=== PATIENT | female | born 1995 | race Caucasian/White ===

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

== ENCOUNTER 2017-05-28 12:48 | Emergency (ER) | payer OTHER ==
[2017-05-28 12:59] VITALS: BP 124/79
--- NOTE | 2017-05-28 13:27 | XRAY Preliminary Report ---
Exam: XR ANKLE 3 VIEW LT IMPRESSION: Normal ankle radiography. [facility] SITE ID: [id number]
--- NOTE | 2017-05-28 13:30 | ED Physician Documentation ---
PD HPI LOWER EXT INJURY - Stated complaint Stated Complaint: L ANKLE INJURY - Chief complaint Chief Complaint: Ext Problem - History obtained from History obtained from: Patient - History of Present Illness PD HPI LOW EXT INJURY LOCATION: Left, Ankle Type of injury: Other (Eversion injury at home at 6:00 last night after she tripped over her dog. Only able to walk with severe pain the pain is mild at rest.) Review of Systems Constitutional: reports: Reviewed and negative Cardiac: reports: Reviewed and negative Respiratory: reports: Reviewed and negative PD PAST MEDICAL HISTORY - Past Medical History Psych: ADD/ADHD - Past Surgical History Past Surgical History: No Ortho: Other - Present Medications Home Medications: Ambulatory Orders Medication Instructions Recorded Confirmed Dextroamphetamine/Amphetamine 40 mg PO DAILY 06/01/16 05/28/17 [Adderall 20 mg Tablet] Sertraline [Zoloft] 100 mg PO DAILY 06/01/16 05/28/17 Ibuprofen [Motrin] 800 mg PO Q8H PRN #30 tablet 05/28/17 - Allergies Allergies/Adverse Reactions: Allergies Allergy/AdvReac Type Severity Reaction Status Date / Time Iodinated Contrast- Oral and Allergy Anaphylaxis Verified 09/15/16 21:46 IV Dye [Iodinated Contrast Media - Oral and] iodine Allergy Anaphylaxis Verified 06/01/16 18:21 - Social History Does the pt smoke?: No Smoking Status: Never smoker Does the pt drink ETOH?: No Does the pt have substance abuse?: No - Immunizations Immunizations are current?: Yes - POLST Patient has POLST: No PD ED PE NORMAL - Vitals Vital signs reviewed: Yes - General General: Alert and oriented X 3, No acute distress - Extremities Extremities: Other (Left ankle is exquisitely tender over the anterior joint line/talus and anterior part of the medial malleolus without lateral malleolar tenderness. Achilles function is normal. Foot is nontender with normal neurovascular status.) Results - Vitals Vitals: Vital Signs - 24 hr 05/28/17 12:56 Temperature 36.6 C Heart Rate 90 Respiratory 18 Rate Blood Pressure 124/79 O2 Saturation 100 Oxygen O2 Source Room air Departure - Departure Disposition: Home, Self Care Clinical Impression: Left ankle sprain Qualifiers: Encounter type: initial encounter Involved ligament of ankle: tibiofibular ligament Qualified Code(s): S93.432A - Sprain of tibiofibular ligament of left ankle, initial encounter Condition: Good Record reviewed to determine appropriate education?: Yes Instructions: ED Sprain Ankle W X Ray Prescriptions: Ibuprofen [Motrin] 800 mg PO Q8H PRN #30 tablet PRN Reason: PAIN &/OR FEVER Comments: Recheck with your doctor in 1 week if not significantly improved. Return if worse.
--- NOTE | 2017-05-28 13:30 | XRAY Report ---
EXAM: LEFT ANKLE RADIOGRAPHY EXAM DATE: 05/28/2017 01:19 PM. CLINICAL HISTORY: Trip and fall. COMPARISON: None. TECHNIQUE: 3 views. FINDINGS: Bones: Normal. No fractures or bone lesions. Joints: Normal. No effusion. No subluxations. The ankle mortise is normally aligned. Soft Tissues: Normal. No soft tissue swelling. IMPRESSION: Normal ankle radiography. [facility] Referring Provider Line: [phone] SITE ID: [id number]
== END 2017-05-28 13:48 | disposition home or self-care (01) ==
LOC: ED 12:48
DX: S93.402A Sprain of unspecified ligament of left ankle, initial encounter (principal); W01.0XXA Fall on same level from slipping, tripping and stumbling without subsequent striking against object, initial encounter; Y92.019 Unspecified place in single-family (private) house as the place of occurrence of the external cause
CPT/HCPCS: 99283

== ENCOUNTER 2018-04-01 16:02 | Emergency (ER) | payer OTHER ==
[2018-04-01 16:08] VITALS: BP 129/74
[2018-04-01] MEDS ORDERED: PHENAZOPYRIDINE 100 MG TABLET PO STA (16:20)
--- NOTE | 2018-04-01 16:25 | ED Physician Documentation ---
History of Present Illness - Stated complaint Stated Complaint: FEMALE - Chief complaint Chief Complaint: General - Additonal information Additional information: hx from pt 22 y/o female implanted control so irreg periods LMP now denies preg no unusual vag dc and denies concern for STD possible fevers chills some nausea some L flank pain no severe abd pain Review of Systems Constitutional: reports: Chills Throat: denies: Sore throat Cardiac: denies: Chest pain / pressure Respiratory: denies: Dyspnea GI: reports: Abdominal Pain (suprapubic) : reports: Dysuria, Hesitancy, LMP (now). denies: Now EGA Musculoskeletal: reports: Back pain Endocrine: denies: Easy bruising / bleeding Immunocompromised: denies: Immunocompromised PD PAST MEDICAL HISTORY - Past Medical History Psych: ADD/ADHD - Past Surgical History Past Surgical History: No Ortho: Other - Present Medications Home Medications: Ambulatory Orders Medication Instructions Recorded Confirmed Phenazopyridine [Pyridium] 100 mg PO Q8H PRN #9 tablet 04/01/18 - Allergies Allergies/Adverse Reactions: Allergies Allergy/AdvReac Type Severity Reaction Status Date / Time Iodinated Contrast- Oral and Allergy Anaphylaxis Verified 04/01/18 16:07 IV Dye [Iodinated Contrast Media - Oral and] iodine Allergy Anaphylaxis Verified 04/01/18 16:07 - Social History Does the pt smoke?: No Smoking Status: Never smoker Does the pt drink ETOH?: No Does the pt have substance abuse?: No - Immunizations Immunizations are current?: Yes - POLST Patient has POLST: No Results - Vitals Vitals: Vital Signs - 24 hr 04/01/18 16:05 Temperature 36.3 C L Heart Rate 70 Respiratory 14 Rate Blood Pressure 129/74 O2 Saturation 99 Oxygen O2 Source Room air - Labs Labs: Laboratory Tests 04/01/18 16:15 Urine Color YELLOW Urine Clarity HAZY Urine pH 5.0 Ur Specific [place] >=1.030 H Urine Protein NEGATIVE Urine Glucose (UA) NEGATIVE Urine Ketones NEGATIVE Urine Occult Blood MODERATE H Urine Nitrite NEGATIVE Urine Bilirubin NEGATIVE Urine Urobilinogen 0.2 (NORMAL) Ur Leukocyte Esterase NEGATIVE Urine RBC 0-5 Urine WBC 0-3 Ur Squamous Epith Cells FEW Squamous Urine Bacteria None Seen Ur Microscopic Review INDICATED Urine Culture Comments NOT INDICATED Urine HCG, Qual NEGATIVE Departure - Departure Disposition: 01 Home, Self Care Clinical Impression: Dysuria Condition: Good Instructions: ED Dysuria Uncertain Cause Follow-Up: ALAYNA LEVINE [Primary Care Provider] - Prescriptions: Phenazopyridine [Pyridium] 100 mg PO Q8H PRN #9 tablet PRN Reason: painful urination Comments: The initial urine test was negative for infection Also no blood to suggest a kidney stone And your exam does not suggest appendicitis Cultures are being run and the ER staff will call you if they are positive and antibiotics are needed. But for right now I recommend no antibiotics and managing the symptoms with pyridium Sometimes other medical problems (like appendicitis) can start off with urinary symptoms, so if you get worse in any way, please come back to the ER for a recheck - I will be here all day Monday and Monday Forms: Activity restrictions
[2018-04-01 16:37] LABS: BILIRUBIN,URINE NEGATIVE (NEGATIVE); GLUCOSE, URINE (UA) NEGATIVE (NEGATIVE); KETONES,URINE (UA) NEGATIVE (NEGATIVE); LEUKOCYTE ESTERASE, URINE NEGATIVE (NEGATIVE); NITRITE,URINE NEGATIVE (NEGATIVE); OCCULT BLOOD,URINE MODERATE (NEGATIVE); PROTEIN,URINE NEGATIVE (NEGATIVE); UROBILINOGEN,URINE 0.2 (NORMAL) E.U./dL (NORMAL)
[2018-04-01 16:42] LABS: CLARITY,URINE HAZY (CLEAR); HCG UR QUAL NEGATIVE
[2018-04-01 16:50] LABS: BACTERIA,URINE None Seen /HPF (None Seen); RBC,URINE 0-5 /HPF (0-5); SQUAMOUS EPITHELIAL CELL,UR FEW Squamous (<= Few)
== END 2018-04-01 17:24 | disposition home or self-care (01) ==
LOC: ED 16:02
DX: R30.0 Dysuria (principal); R10.9 Unspecified abdominal pain; R11.0 Nausea
CPT/HCPCS: 81001; 81025; 87491; 87591; 99283; A9270; 81003; 87086

== ENCOUNTER 2018-06-19 15:35 | Emergency (ER) | payer OTHER ==
[2018-06-19 15:54] LABS: BILIRUBIN,URINE NEGATIVE (NEGATIVE); GLUCOSE, URINE (UA) NEGATIVE (NEGATIVE); KETONES,URINE (UA) >=80 mg/dL (NEGATIVE); LEUKOCYTE ESTERASE, URINE NEGATIVE (NEGATIVE); NITRITE,URINE NEGATIVE (NEGATIVE); OCCULT BLOOD,URINE SMALL (NEGATIVE); PH,URINE 5.5 PH (5.0-7.5); PROTEIN,URINE NEGATIVE (NEGATIVE); UROBILINOGEN,URINE 0.2 (NORMAL) E.U./dL (NORMAL)
[2018-06-19 15:55] LABS: CLARITY,URINE CLEAR (CLEAR)
[2018-06-19 16:13] LABS: BACTERIA,URINE None Seen /HPF (None Seen); RBC,URINE 0-5 /HPF (0-5); SQUAMOUS EPITHELIAL CELL,UR NONE SEEN (<= Few)
[2018-06-19 16:17] LABS: HCG UR QUAL NEGATIVE
--- NOTE | 2018-06-19 16:27 | ED Physician Documentation ---
History of Present Illness - Stated complaint Stated Complaint: SOA/FEMALE - Chief complaint Chief Complaint: Abd Pain - Additonal information Additional information: hx from pt 23 y/o has implanted control which is due to be extracted to ED with 4 weeks of increasingly heavy vag bleeding now changing pad q4-6 weeks feels weak and SOA has abd cramps no vag dc fever or concern for STD Review of Systems Constitutional: denies: Fever Cardiac: denies: Chest pain / pressure Respiratory: reports: Dyspnea GI: reports: Abdominal Pain (pelvic cramps) : reports: Vaginal bleeding. denies: Discharge, Now EGA Endocrine: denies: Easy bruising / bleeding Immunocompromised: denies: Immunocompromised PD PAST MEDICAL HISTORY - Past Medical History Psych: ADD/ADHD - Past Surgical History Past Surgical History: No Ortho: Other - Present Medications Home Medications: Ambulatory Orders Medication Instructions Recorded Confirmed Etonogestrel [Nexplanon] 68 mg SQ ONCE 06/19/18 06/19/18 Ibuprofen [Motrin] 400 mg PO Q6H #30 tablet 06/19/18 - Allergies Allergies/Adverse Reactions: Allergies Allergy/AdvReac Type Severity Reaction Status Date / Time Iodinated Contrast- Oral and Allergy Anaphylaxis Verified 06/19/18 15:42 IV Dye [Iodinated Contrast Media - Oral and] iodine Allergy Anaphylaxis Verified 06/19/18 15:42 - Social History Does the pt smoke?: No Smoking Status: Never smoker Does the pt drink ETOH?: No Does the pt have substance abuse?: No - Immunizations Immunizations are current?: Yes - POLST Patient has POLST: No PD ED PE NORMAL - Vitals Vital signs reviewed: Yes - Cardiac Cardiac: RRR - Respiratory Respiratory: No respiratory distress - Abdomen Abdomen: Soft, Non tender - Derm Derm: Normal color - Neuro Neuro: Alert and oriented X 3 Results - Vitals Vitals: Vital Signs - 24 hr 06/19/18 15:38 Temperature 36.4 C L Heart Rate 80 Respiratory 18 Rate Blood Pressure 139/91 H O2 Saturation 98 Oxygen O2 Source Room air - Labs Labs: Laboratory Tests 06/19/18 06/19/18 06/19/18 15:46 15:46 16:30 WBC 13.3 H RBC 4.70 Hgb 13.8 Hct 42.0 MCV 89.4 MCH 29.3 MCHC 32.8 RDW 13.8 Plt Count 295 MPV 9.2 Neut # (Auto) 10.3 H Lymph # (Auto) 2.4 [place] # (Auto) 0.5 Eos # (Auto) 0.0 Baso # (Auto) 0.0 Absolute Nucleated RBC 0.00 Nucleated RBC % 0.0 Urine Color YELLOW Urine Clarity CLEAR Urine pH 5.5 Ur Specific [place] >=1.030 H >=1.030 H Urine Protein NEGATIVE Urine Glucose (UA) NEGATIVE Urine Ketones >=80 H Urine Occult Blood SMALL H Urine Nitrite NEGATIVE Urine Bilirubin NEGATIVE Urine Urobilinogen 0.2 (NORMAL) Ur Leukocyte Esterase NEGATIVE Urine RBC 0-5 Urine WBC 0-3 Ur Squamous Epith Cells NONE SEEN Urine Bacteria None Seen Ur Microscopic Review INDICATED Urine Culture Comments NOT INDICATED Urine HCG, Qual NEGATIVE - Rads (name of study) pelvic sono Radiology: See rad report (normal) PD MEDICAL DECISION MAKING - ED course ED course: I have seen pt in last few months for STD testing which was neg pelvic sono neg for fibroid etc she states her implanted control is due to be removed suspect DUB 2/2 waning hormone from the implant will refer to [facility] for removal and possibly a new one PERC neg (nexplanon is progestin not estrogen) Departure - Departure Disposition: 01 Home, Self Care Clinical Impression: Dysfunctional uterine bleeding Condition: Good Instructions: ED Bleed Irregular Vaginal Follow-Up: ALAYNA LEVINE [Primary Care Provider] - Carolina Etienne DO [Provider Admit Priv/Credential] - Prescriptions: Ibuprofen [Motrin] 400 mg PO Q6H #30 tablet Comments: Your blood count is fine. The ultrasound is normal. I suspect that your nexplanon is at the end of its life cycle and as the hormone levels start to wane you are having break through bleeding. For the pain and cramping I recommend motrin 400 mg three times a day with food. Please follow up with [facility] about having the impant removed and perhaps a new one placed. Return if worse. Forms: Activity restrictions
[2018-06-19 16:36] LABS: BASOPHILS % (AUTO) 0.2 %; EOSINOPHILS % (AUTO) 0.1 %; HGB - HEMOGLOBIN 13.8 g/dL (12.0-16.0); LYMPHOCYTES # (AUTO) 2.4 10^3/uL (1.5-3.5); LYMPHOCYTES % (AUTO) 18.3 %; MEAN CORPUSCULAR HEMOGLOBIN 29.3 pg (27.0-31.0); MEAN CORPUSCULAR HGB CONC 32.8 g/dL (32.0-36.0); MEAN CORPUSCULAR VOLUME 89.4 fL (81.0-99.0); MEAN PLATELET VOLUME 9.2 fL (7.9-10.8); MONOCYTES # (AUTO) 0.5 10^3/uL (0.0-1.0); NEUTROPHILS # (AUTO) 10.3 10^3/uL (1.5-6.6); NEUTROPHILS % (AUTO) 77.4 %; PLT - PLATELET COUNT 295 10^3/uL (130-450); RED CELL DISTRIBUTION WIDTH 13.8 % (12.0-15.0); WHITE BLOOD COUNT 13.3 x10^3/uL (4.8-10.8)
--- NOTE | 2018-06-19 18:22 | Ultrasound Report ---
Reason: pelvic pain and bleeding Procedure Date: 06/19/2018 Accession Number: [id number] / [id number] Procedure: US - Pelvic w/Transvag+Doppler Comp CPT Code: FULL RESULT: EXAM: PELVIC ULTRASOUND EXAM DATE: 06/19/2018 06:08 PM. CLINICAL HISTORY: Pelvic pain and bleeding. COMPARISON: None. TECHNIQUE: Realtime transabdominal pelvic scan performed to identify the uterus and adnexa and as an overview of other pelvic structures, followed by transvaginal scan to provide greater detail of the uterus and adnexa, with static image documentation. FINDINGS: Uterus: 8.3 x 3.2 x 4.2 cm, volume 58 cc. Anteverted position. Normal overall size and echotexture. Masses: None. Endometrium: 2 mm. Normal. Cervix: Unremarkable. Right Ovary: 3.1 x 1.8 x 1.8 cm, volume 5.2 cc. Normal echotexture and blood flow. Left Ovary: 3.1 x 1.5 x 1.7 cm, volume 4.0 cc. Normal echotexture and blood flow. Free Fluid: None. Other: None. IMPRESSION: Normal pelvic ultrasound. [facility]
[2018-06-19 18:40] VITALS: BP 107/73
== END 2018-06-19 18:56 | disposition home or self-care (01) ==
LOC: ED 15:35
DX: N93.8 Other specified abnormal uterine and vaginal bleeding (principal)
CPT/HCPCS: 36415; 76830; 76856; 81001; 81003; 81025; 85025; 87086; 93975; 99283